=== PATIENT | female | born 1970 | race Caucasian/White ===

== ENCOUNTER 2020-05-31 09:25 | Day surgery (SDC) | payer OTHER ==
[2020-05-23 12:39] VITALS: BMI 22.8
[~2020-05-31 09:25] MED LIST: CEFAZOLIN 1 GM in DEXTROSE 5%-WATER - 100 ML IVPB ONE; CEFAZOLIN 2 GM in DEXTROSE 5%-WATER - 100 ML IVPB ONE; PHENAZOPYRIDINE HCL 100 MG TABLET (FP) PO ONE
[2020-05-31 09:54] LABS: EOS % 2.4 % (0-4.5); LYMPH % 44.3 % (8-40); MCH 29.6 pg (25.7-33.7); MCHC 33.3 g/dl (32.0-36.0); MEAN CELL VOLUME 88.8 fl (80-96); MEAN PLT VOLUME 8.6 fl (7.5-11.1); MONO % 9.7 % (3.8-10.2); NEUT % 41.6 % (42.8-82.8); PLATELET COUNT 222 K/MM3 (134-434); RBC 4.39 M/mm3 (3.60-5.2); RDW 13.8 % (11.6-15.6); WHITE BLOOD COUNT 3.9 K/mm3 (4.0-10.0)
[2020-05-31] MEDS ORDERED: PHENAZOPYRIDINE HCL 100 MG TABLET (FP) ONE (10:22)
[2020-05-31] MEDS ORDERED: ceFAZolin SODIUM 1 GM VIAL ONE ×2 (10:23→12:32)
[2020-05-31] MEDS ORDERED: PHENAZOPYRIDINE HCL 100 MG TABLET (FP) PO ONE (10:26)
[2020-05-31] MEDS ORDERED: MIDAZOLAM HCL 2 MG/2 ML SINGLE DOSE VIAL ONE ×2 (11:04)
[2020-05-31] MEDS ORDERED: ROPIVACAINE HCL 0.5% 30ML VIAL ONE (11:05)
[2020-05-31] MEDS ORDERED: SCOPOLAMINE HYDROBROMIDE 1 PATCH PATCH.TD72 ONE (11:06)
[2020-05-31] MEDS ORDERED: fentaNYL CITRATE 250 MCG/5 ML VIAL ONE (11:42)
[2020-05-31] MEDS ORDERED: ROCURONIUM BROMIDE 50 MG/5 ML SYRINGE ONE (11:42)
[2020-05-31] MEDS ORDERED: LIDOCAINE HCL/PF 2% SDV 5ML VIAL ONE (11:43)
[2020-05-31] MEDS ORDERED: PROPOFOL 20 ML ONE (11:43)
[2020-05-31] MEDS ORDERED: DEXAMETHASONE SOD PHOSPHATE 4 MG/1 ML VIAL ONE ×2 (11:43→14:11)
[2020-05-31] MEDS ORDERED: LIDOCAINE 1%/EPI 1:100000 (20 ML MULTI DOSE VIAL) IJ ONE (12:34)
[2020-05-31] MEDS ORDERED: KETOROLAC TROMETHAMINE 30 MG/1 ML VIAL ONE (14:11)
[2020-05-31] MEDS ORDERED: GLYCOPYRROLATE 0.2 MG/1 ML VIAL ONE (14:13)
[2020-05-31] MEDS ORDERED: NEOSTIGMINE METHYLSULFATE 0.5 MG/ML - 10 ML MDV ONE (14:13)
[2020-05-31] MEDS ORDERED: PHENYLEPHRINE HCL 10 MG/1 ML SINGLE DOSE VIAL ONE (14:13)
--- NOTE | 2020-05-31 14:30 | OP ---
Operative Note - Note: Operative Date: 05/31/20 Pre-Operative Diagnosis: DUBs. Pelvic pain. HGSIL. Operation: Robotic total hysterectomy. RS, LSO. Resection and repair of enterocele with Brown/Tran vault suspension. Post-Operative Diagnosis: Same as Pre-op (+ enterocele.) Surgeon: John Aldridge District Wire Chief: Lindsay Ferro Anesthesiologist/CANAL DRIVER: Yong Horan Anesthesia: General Estimated Blood Loss (mls): 25
[2020-05-31] MEDS ORDERED: oxyCODONE HCL 5 MG TABLET PO PRN ×2 (14:59→16:06)
[2020-05-31] MEDS ORDERED: BISACODYL 5 MG TABLET.DR (FP) PO PRN (14:59)
[2020-05-31] MEDS ORDERED: DOCUSATE SODIUM 100 MG CAPSULE (FP) PO PRN (14:59)
[2020-05-31] MEDS ORDERED: ONDANSETRON 4 MG/2 ML VIAL IVPUSH PRN ×2 (14:59→16:06)
[2020-05-31] MEDS ORDERED: SIMETHICONE 80 MG TAB.CHEW (FP) PO PRN (14:59)
[2020-05-31] MEDS ORDERED: LACTATED RINGERS SOLUTION 1,000 ML/1,000 ML INFUS.BAG IV SCH (15:00)
[2020-05-31] MEDS ORDERED: LACTATED RINGERS SOLUTION 1,000 ML IV SCH (16:15)
[2020-05-31 16:58] VITALS: BP 96/57; PULSE 56; TEMP 98
--- NOTE | 2020-05-31 18:14 | PN ---
Progress Note (short form) - Note Progress Note: POD # 0. VSS. Voiding ok OOB. Feels well. Wants to go home. PE OK. Abd. flat, minimally tender. Incisions clean. Mild staining. Instructions given. Discharge tonight.
--- NOTE | 2020-05-31 18:21 | DS ---
Physical Examination Vital Signs: Vital Signs Temperature 98.0 F 05/31/20 16:57 Pulse Rate 56 L 05/31/20 16:57 Respiratory Rate 20 05/31/20 16:57 Blood Pressure 96/57 L 05/31/20 16:57 O2 Sat by Pulse Oximetry (%) 99 05/31/20 16:57 Constitutional: Yes: Well Nourished, No Distress, Calm Eyes: Yes: WNL, Conjunctiva Clear, EOM Intact HENT: Yes: WNL, Atraumatic, Normocephalic Neck: Yes: WNL, Supple, Trachea Midline Cardiovascular: Yes: WNL, Regular Rate and Rhythm Respiratory: Yes: WNL, Regular, CTA Bilaterally Gastrointestinal: Yes: WNL, Normal Bowel Sounds Musculoskeletal: Yes: WNL Extremities: Yes: WNL Edema: No Integumentary: Yes: WNL Neurological: Yes: WNL, Alert, Oriented ...Motor Strength: WNL Psychiatric: Yes: WNL Labs: CBC, BMP 05/31/20 09:36 Discharge Summary Problems reviewed: Yes Reason For Visit: DUBs. Pelvic pain. HGSIL of cervix. Hospital Course: Uneventful Robotic total hyst. LSO and RS Enterocele excision and repair; [facility] Call suspension. Condition: Stable - Instructions Diet, Activity, Other Instructions: Dr. Aldridge PR[employer]ED [employer]ARD PANELS DEVELOPER discharge instructions Physical activity: Resume your normal everyday activity as tolerated no heavy lifting or exercise until seen by your surgeon. You may walk unlimited amounts and climb stairs. You may resume driving the car when you feel safe and comfortable behind the wheel. Wound care: If you have a bandage, leave it on, and keep dry for 48 hours. After that time discard the outer bandage. If they are tapes on the skin under the outer of bandage leave them in place. They will peel off in the next 7 to 10 days. Do Not Peel them off. If there are tapes present on the skin, you may shower over them. Diet: There are no dietary restrictions. Eat healthy, high-fiber foods. Drink 6 to 8 glasses of liquid each day. This will assist in keeping your bowels are regular. Pain management: You may take Tylenol or acetaminophen or Ibuprofen (for example, Motrin, Advil etc.) every 6 hours as needed for pain. Call Dr. Aldridge for any of the following: * Severe pain not relieved by medication * Fever of 101 or higher * Excessive bleeding or drainage on dressing Call the office at [phone] for an appointment in seven to 10 days. Disposition: HOME - Home Medications Comprehensive Discharge Medication List: Ambulatory Orders Linaclotide [Linzess] 290 mcg PO DAILY 04/27/20 Multivitamin [Multiple Vitamins] 1 each PO DAILY 05/31/20 Prescription Drug Monitoring Program (I-STOP) results: I-STOP reviewed and no issues identified
[2020-05-31] MEDS ORDERED: ACETAMINOPHEN 325 MG TABLET (FP) PO PRN (21:00)
[2020-05-31] MEDS ORDERED: KETOROLAC TROMETHAMINE 30 MG/1 ML VIAL IVPUSH PRN (21:59)
--- NOTE | 2020-06-01 13:40 | OP ---
DATE OF OPERATION: DATE OF DICTATION: 05/31/2020 PREOPERATIVE DIAGNOSES: 1. Dysfunctional uterine bleeding. 2. 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 3. Pelvic pain. POSTOPERATIVE DIAGNOSES: 1. Dysfunctional uterine bleeding. 2. 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 3. Pelvic pain. 4. Large enterocele. PROCEDURE: 1. Robotic total hysterectomy. 2. Right salpingectomy and left salpingo-oophorectomy. 3. Resection of large enterocele with modified Brown-Tran vaginal vault suspension. SURGEON: Puma Rene MD LINE PATROLLER: MENDEZ Rosenberg ANESTHESIA: TAP block and general. ANESTHESIOLOGIST: Yong Horan MD PROCEDURE AND FINDINGS: Under general anesthesia in dorsal lithotomy position patient was examined. Uterus was found to be enlarged, somewhat irregular with large cervix and good mobility. Adnexa were palpated, within normal limits. Vulvovaginal prep was carried out and medium-sized VCare device was placed in the cavity. Fair catheter was then inserted. Abdominal prep and drape were then carried out. Abdomen was entered with a Veress needle through infraumbilical vertical 8-mm incision and insufflated with 3.5 L of carbon dioxide. Da Jeniffer trocar was placed in the abdominal cavity. The area of incision was infiltrated with lidocaine with epinephrine. Under direct view 3 subsequent ports were inserted. Lidocaine with epinephrine was used with every one. Two 8-mm da Jeniffer ports were placed at the level of umbilicus laterally on the right and left side. Additional 5-mm AirSeal device was placed in the left midclavicular line slightly above the level of the umbilicus. The robot was docked. Vessel sealer was placed in arm number 1 and bipolar fenestrated device in arm number 2. Findings were as follows: Uterus was mildly enlarged with good mobility. Left ovary was adhered to the uterus and to the round ligament and broad ligament posterior leaf. Right ovary was completely within normal limits, essentially young looking. Anterior and posterior cul-de-sac were within normal limits. Quick look around the abdomen showed no pathology. Both ureters were identified and they were far away from the dissection. Right-sided mesosalpinx was divided. Round ligament was opened. Anterior leaf of the broad ligament was incised and uteroovarian ligament was divided. Posteriorly the broad ligament was divided as well. Bladder was taken off the cervix below the rim of VCare and uterine vessels were skeletonized. They were coagulated, divided and right-sided cardinal ligament was divided as well. Decision was made to remove the left ovary. Round ligament was opened on the left side, posterior leaf was incised and infundibulopelvic ligament was developed. It was divided at a safe distance from the ureter and posterior leaf of broad ligament was incised. Anterior leaf was opened as well, connected to the right side and bladder was taken off the cervix by blunt and sharp dissection. Left uterine vessel plexus was identified, coagulated and divided. Left cardinal ligament was opened as well. The rim of the VCare device was seen very well and all surrounding tissue was cleared. Vessel sealer was replaced with monopolar scissors and anterior uterine fornix was entered. Care was taken to leave some healthy vaginal tissue on the cervix in view of her diagnosis of HGSIL. Vaginal incision was carried all around and in the process uterosacral ligaments were identified and divided, leaving good stumps for the uterus suspension. Uterus, left adnexum and right fallopian tube were then removed en bloc transvaginally. Large enterocele was identified. Most of it was then dissected in a rounded triangular fashion and sent as a separate specimen. Vaginal vault was then closed with 2 separate V-Loc sutures. Angles were secured. Enterocele was eliminated with placement of the sutures and vault was sewn into the stumps of uterosacral ligament in a modified Tran-Brown fashion. Sutures were then tied posteriorly in the cul-de-sac. Both needles were removed. Pelvis was lavaged. Hemostasis was excellent. FloSeal was placed on the raw areas of our dissection. Procedure was terminated at that point. Gas was allowed to escape from the abdomen. All instruments were removed under direct vision. Incisions were closed with interrupted subcuticular 4-0 Biosyn sutures and Dermabond. Urine was clear in the Fair catheter bag. Blood loss was 25 mL. PUMA RENE MD [id number] MTDD
--- NOTE | 2020-06-01 14:42 | SURG ---
Surgery Label Maker Note Label Maker: Lindsay Ferro PA-C (Suzy) Date of Service: 05/31/20 Diagnosis: DUBs. Pelvic pain. HGSIL. Procedure: Operation: Robotic total hysterectomy. RS, LSO. Resection and repair of enterocele with Brown/Tran vault suspension. I was present for the entirety of the operative procedure. For further detail, please refer to operative report. Visit type - Case Type Case Type: Scheduled - Emergency Emergency Visit: No - New patient This patient is new to me today: Yes Date on this admission: 06/01/20 - Critical Care Critical Care patient: No
--- NOTE | 2020-06-08 11:06 | PATH ---
Surgical Pathology Report Patient Name: PILY OSCAR [facility]. Rec. #: [id number] /Age/Gender: 1970 (Age: 50) / F Account: [id number] Location: AMBULATORY SURG Taken: 05/31/2020 Received: 06/01/2020 Reported: 06/08/2020 Physicians: John Aldridge MD Specimen(s) Received A: UTERUS, CERVIX, LEFT OVARY, BILATERAL FALLOPIAN TUBES B: ENTEROCELE Clinical History Postmenopausal bleeding and endometrial hyperplasia, HSIL Final Diagnosis A. UTERUS, CERVIX, LEFT OVARY, BILATERAL FALLOPIAN TUBES, ROBOTIC TOTAL HYSTERECTOMY, LEFT SALPINGO-OOPHORECTOMY, RIGHT SALPINGECTOMY: CERVIX WITH HIGH GRADE SQUAMOUS INTRAEPITHELIAL LESION (HSIL/CERVICAL INTRAEPITHELIAL NEOPLASIA 2/DUKE 2) AND LOW GRADE SQUAMOUS INTRAEPITHELIAL LESION (LSIL) INVOLVING 12-3:00 AND 6-9:00 QUADRANTS. NO GLANDULAR INVOLVEMENT IDENTIFIED. PROLIFERATIVE ENDOMETRIUM. MYOMETRIUM WITH ADENOMYOSIS. LEFT FALLOPIAN TUBE WITH ENDOSALPINGOSIS, AND PARATUBAL CYST (INCLUDING FULL LUMINAL PORTION AND FIMBRIATED END). LEFT OVARY WITH CYSTIC FOLLICLES AND FOCAL ENDOSALPINGOSIS. TUBO-OVARIAN ADHESIONS INVOLVING LEFT OVARY AND FALLOPIAN TUBE. UNREMARKABLE RIGHT FALLOPIAN TUBE (INCLUDING FULL LUMINAL PORTION AND FIMBRIATED END). SEE COMMENT. B. ENTEROCELE, EXCISION: BENIGN SQUAMOUS MUCOSA. Comment: Part A, Immunohistochemical stains [place] ([id number]) and interpreted at [facility] for p16 show diffuse strong positivity in areas of HSIL. Ki-67 utilized to evaluate this case. Positive and negative controls (internal if applicable) show appropriate results. Electronically Signed Alma Rosa Caldera M.D. Gross Description A. Received in formalin labeled "uterus, cervix, bilateral tubes," is a 98 g uterus with an attached cervix and bilateral attached fallopian tubes. There is an attached left ovary. The specimen measures 7 cm from superior to inferior, 5.4 cm from left to right and 4.0 cm from anterior to posterior. The serosa is rodriguez-rico and smooth. The attached cervix measures 1.8 cm in length and averages 2.3 cm in diameter. The ectocervix is rodriguez, smooth and glistening. The endocervix is unremarkable. The endometrial cavity measures 3.5 cm in length and 2.3 cm from cornu to cornu. The endometrium is red and averages 0.1 cm in thickness. The myometrium displays foci of hemorrhage. No intramural nodules are identified. The myometrium averages 1.8 cm in thickness. The left fimbriated fallopian tube measures 4.5 cm in length. The outer surface is rodriguez clarke with tubal ovarian adhesions. Sectioning reveals an unremarkable fallopian tube lumen. The left ovary measures 2.5 x 1.8 x 1.7 cm. The outer surface is rodriguez-yellow and smooth. Sectioning reveals 2 cysts within the ovary measuring 0.8 and 2.2 cm in greatest dimension. The cysts contain serous fluid. No excrescences are identified. The right fimbriated fallopian tube measures 5 cm in length. The outer surface is rodriguez-brown and smooth. Sectioning reveals an unremarkable fallopian tube lumen. Entire cervix is submitted. Shank Faker sections are submitted in 27 cassettes as follows: 1-anterior cervix; 2-posterior cervix; 7-5-uhcwelst and sequentially submitted anterior endometrium from superior to inferior; 2-53-gorfhxws and sequentially submitted posterior endometrium from superior to inferior; 13-left fallopian tube fimbria; 14-cross sections of left fallopian tube; 15-larger left ovarian cyst; 16-smaller left ovarian cyst and uninvolved ovarian parenchyma; 17-right fallopian tube fimbria; 18-cross sections of right fallopian tube. Additional cassettes are submitted as follows: 19-27- remainder of the cervix sequentially submitted clock [place] from 1:00 to 12:00. B. Received in formalin labeled "enterocele" is a 1.7 x 0.8 x 0.7 cm rodriguez-pink portion of soft tissue. The specimen is bisected and entirely submitted in one cassette. 06/01/2020 [facility]06/01/2020
== END 2020-05-31 20:00 | disposition home or self-care (01) ==
LOC: JASUSAT 09:25 → J6S 16:46 → JASUSAT 20:00
PROVIDERS: ATTEND Specialist
PROC: 0USG7ZZ Reposition Vagina, Via Natural or Artificial Opening (ICD-10-PCS; 2020-05-31)
PROC: 0UT9FZZ Resection of Uterus, Via Natural or Artificial Opening With Percutaneous Endoscopic Assistance (ICD-10-PCS; 2020-05-31)
PROC: 0UT2FZZ Resection of Bilateral Ovaries, Via Natural or Artificial Opening With Percutaneous Endoscopic Assistance (ICD-10-PCS; 2020-05-31)
PROC: 0UT7FZZ Resection of Bilateral Fallopian Tubes, Via Natural or Artificial Opening With Percutaneous Endoscopic Assistance (ICD-10-PCS; 2020-05-31)
PROC: 0UQF7ZZ Repair Cul-de-sac, Via Natural or Artificial Opening (ICD-10-PCS; principal; 2020-05-31 11:00)
DX: N93.8 Other specified abnormal uterine and vaginal bleeding (principal); N87.1 Moderate cervical dysplasia; N99.3 Prolapse of vaginal vault after hysterectomy; N83.8 Other noninflammatory disorders of ovary, fallopian tube and broad ligament; N94.89 Other specified conditions associated with female genital organs and menstrual cycle; R10.2 Pelvic and perineal pain
CPT/HCPCS: 36415; 84703; 85025; 86850; 86900; 86901; 88305-TC; 88307-TC; 94760